=== PATIENT | female | born 1935 ===

== ENCOUNTER 2022-10-31 11:34 | Outpatient (CLI) | payer MEDICARE ==
--- NOTE | 2022-10-31 13:43 | XRAY Report ---
PROCEDURE: Abdomen 2 View X-Ray INDICATIONS: ABDOMINAL CRAMPS/CONSTIPATION TECHNIQUE: 4 views of the abdomen were acquired. COMPARISON: None. FINDINGS: Surgical changes and devices: None. Bowel: No pneumoperitoneum. The bowel gas pattern is normal. Moderate fecal stasis in the colon is seen.. Soft tissues: No masses; visualized solid organ contours appear normal in size. No suspicious abdom inal calcifications. Bones: No suspicious bony abnormalities. IMPRESSION: No bowel obstruction or gross free air. Mild to moderate constipation. No gross renal calcifications. Reviewed by: Yash Sanabria MD on 10/31/2022 12:42 PM [facility]DT Approved by: Yash Sanabria MD on 10/31/2022 12:42 PM AKDT Station ID: [id number]
== END 2022-10-31 11:35 | disposition home or self-care (01) ==
LOC: DI.S 11:34
PROVIDERS: ATTEND Registered Nurse
DX: R10.9 Unspecified abdominal pain (principal); K59.00 Constipation, unspecified
CPT/HCPCS: 36415; 80053; 84443; 85025

== ENCOUNTER 2022-12-01 17:25 | Outpatient (CLI) | payer MEDICARE | END 2022-12-01 17:26 | disposition short-term general hospital (02) | LOC: EMS 17:25 | DX: R42 Dizziness and giddiness (principal); R94.31 Abnormal electrocardiogram [ECG] [EKG]; Z95.0 Presence of cardiac pacemaker | CPT/HCPCS: A0425; A0427 ==

== ENCOUNTER 2023-03-04 09:26 | Outpatient (CLI) | payer MEDICARE ==
[2023-03-04 14:26] LABS: EOSINOPHILS # (AUTO) 0.1 10^3/uL (0.0-0.7); EOSINOPHILS % (AUTO) 2.3 %; HCT - HEMATOCRIT 39.2 % (37.0-47.0); HGB - HEMOGLOBIN 12.8 g/dL (12.0-16.0); LYMPHOCYTES # (AUTO) 1.2 10^3/uL (1.5-3.5); LYMPHOCYTES % (AUTO) 30.1 %; MEAN CORPUSCULAR HEMOGLOBIN 32.5 pg (27.0-31.0); MEAN CORPUSCULAR HGB CONC 32.7 g/dL (32.0-36.0); MEAN CORPUSCULAR VOLUME 99.5 fL (81.0-99.0); MEAN PLATELET VOLUME 9.9 fL (7.9-10.8); MONOCYTES # (AUTO) 0.4 10^3/uL (0.0-1.0); NEUTROPHILS # (AUTO) 2.2 10^3/uL (1.5-6.6); NEUTROPHILS % (AUTO) 55.6 %; PLT - PLATELET COUNT 209 10^3/uL (130-450); RED BLOOD COUNT 3.94 10^6/uL (4.20-5.40); RED CELL DISTRIBUTION WIDTH 13.4 % (12.0-15.0)
[2023-03-04 14:46] LABS: ALBUMIN 4.3 g/dL (3.2-5.5); ALBUMIN/GLOBULIN RATIO 1.8 (1.0-2.2); ALKALINE PHOSPHATASE 55 IU/L (42-121); ALT ALANINE AMINOTRANSFERASE 11 IU/L (10-60); AST ASPARTATE AMINOTRANSFERASE 15 IU/L (10-42); BILIRUBIN,TOTAL 0.7 mg/dL (0.2-1.0); BUN - BLOOD UREA NITROGEN 22 mg/dL (6-20); CALCIUM 9.9 mg/dL (8.5-10.3); CARBON DIOXIDE - CO2 30 mmol/L (21-32); CHLORIDE 108 mmol/L (101-111); CHOL/HDL RATIO 1.9 (<4.4); CHOLESTEROL 145 mg/dL; CREATININE 1.1 mg/dL (0.6-1.3); GFR - MDRD 47 (>89); GLUCOSE 115 mg/dL (74-104); HDL CHOLESTEROL 77 mg/dL; LDL CHOLESTEROL,CALCULATED 52 mg/dL; LDL/HDL RATIO 0.7 (<4.4); POTASSIUM 4.6 mmol/L (3.5-4.5); SODIUM 143 mmol/L (135-145); TOTAL PROTEIN 6.7 g/dL (6.4-8.9); TRIGLYCERIDES 78 mg/dL (48-352); VLDL CHOLESTEROL 16 mg/dL
[2023-03-04 14:58] LABS: THYROID STIMULATING HORMONE 1.89 uIU/mL (0.34-5.60)
== END 2023-03-04 09:27 | disposition home or self-care (01) ==
LOC: LAB.S 09:26
PROVIDERS: ATTEND Internal Medicine
DX: I25.10 Atherosclerotic heart disease of native coronary artery without angina pectoris (principal); I50.32 Chronic diastolic (congestive) heart failure
CPT/HCPCS: 36415; 80053; 80061; 83721; 84443; 85025